=== PATIENT | female | born 1965 | race Native Hawaiian/Other Pacific Islander ===

== ENCOUNTER 2017-12-18 10:52 | Day surgery (SDC) | payer OTHER ==
[2017-12-03 12:19] VITALS: BMI 28.2
[2017-12-18] MEDS ORDERED: Bupivacaine HCl 0.5% PF (10 ml) Inj ONE ×2 (11:19)
[2017-12-18] MEDS ORDERED: Lidocaine 2% Inj (20ml) ONE (11:19)
[2017-12-18] MEDS ORDERED: Propofol 10 mg/ml Inj (20 ML) ONE (12:26)
[2017-12-18] MEDS ORDERED: Midazolam 2 MG/2 ML VIAL ONE (12:26)
--- NOTE | 2017-12-18 13:09 | PCM.SURG1 ---
Surgeon's Initial Post Op Note - Surgeon's Notes Surgeon: Dr. Jitendra Humphries DPM Complaints Coordinator: Dr. Angeli Carmichael DPM PGY-1 Type of Anesthesia: MAC, Local Anesthesia Administered By: Dr. Diamond WALTON Pre-Operative Diagnosis: Left foot plantar fasciitis Operative Findings: See dictation. M: 3-0 nylone. I: 10 cc of 1:1 2% lidocain plain:0.5% marcain plain - preop;. Intra op: 5 cc of 2% lidocain plain, 3 cc of PRP Post-Operative Diagnosis: Same Operation Performed: Percutenous plantar fasciotomy under ultrasound guidance Specimen/Specimens Removed: None Estimated Blood Loss: EBL {In ML}: 1 Blood Products Given: N/A Drains Used: No Drains Post-Op Condition: Good Date of Surgery/Procedure: 12/18/17 Time of Surgery/Procedure: 12:30
[2017-12-18] MEDS ORDERED: Oxycodone/Acetaminophen 5/325 mg Tab PO PRN ×2 (13:11)
[2017-12-18] MEDS ORDERED: Lactated Ringer's 1,000 ML IV SCH (13:15)
[2017-12-18] MEDS: HYDROmorphone 0.5 mg/0.5 ml ISec IVP PRN ×2 (13:55→14:22)
[2017-12-18 15:26] VITALS: BP 110/63; PULSE 64; RESP 18; TEMP 98; O2SAT 100
--- NOTE | 2017-12-19 09:55 | OP ---
PROCEDURE DATE: 12/18/2017 AGE: 52. SEX: Female. PREOPERATIVE DIAGNOSIS: Left foot plantar fasciitis. POSTOPERATIVE DIAGNOSIS: Left foot plantar fasciitis. PROCEDURE: 1. Left foot percutaneous tenotomy of plantar fascia under ultrasound guidance. 2. Platelet-rich plasma injection. SURGEON: Jitendra Humphries DPM. SYSTEM SUPPORT ANALYST: Angeli Carmichael DPM, PGY1. TYPE OF ANESTHESIA: IV sedation with local. ANESTHESIOLOGIST: Dr. Fields. INDICATIONS: The patient is a 52-year-old female with the above diagnosis. The patient has exhausted all conservative treatment at this time and now requires surgical intervention. The patient signed the consent after careful explanation of risks, benefits, complications, and alternatives for surgical procedure. No guarantees were given nor implied. PREPARATION: The patient was brought into the operating room and placed on the operating room table in a prone position. Timeout was performed for the identification of the correct patient and the procedure. After induction of IV sedation, the patient received total of 10 mL of 1:1 mixture of 2% lidocaine plain and 0.5% Marcaine plain in the local block type fashion to the left plantar heel. Once local anesthesia was achieved, the left foot and ankle were then prepped and draped in normal sterile manner. No tourniquet was used during this procedure. PROCEDURE: 1. Left foot percutaneous tenotomy of plantar fascia under ultrasound guidance. Attention was then directed to the left heel. A sterile sleeve was placed over an ultrasound transducer and a diagnostic ultrasound was performed. Attention was then directed to the medial aspect of the calcaneus. Anatomy was identified and the disease-thickened area was seen at the medial plantar fascia band near the calcaneal insertion. Using a #15 blade, a stab incision was created over the medial aspect of the calcaneus. 5 mL of 2% lidocaine plain was injected on the medial calcaneus at this time. The TX two-hand piece was introduced. Once the tip was located in the hypoechoic lesion, the foot pedal was depressed and the area was debrided and the tissue excised. A total of 3 minutes and 8 sec of ultrasonic energy was delivered. 2. Injection of PRP, 30 mL of the patient's own blood was collected. Blood was raised in the centrifuge on the back table. Centrifuge was turned on and the blood was spun utilizing the needle and syringe. Approximately 3 mL of PRP was collected in a sterile manner. Utilizing the 18-gauge needle, the 3 mL of PRP was injected into the left heel. 4-0 nylon was used to suture the skin in a simple suture pattern. The incision was dressed with Betadine-soaked Adaptic, gauze, Naty, and lastly Jose Antonio. POSTOPERATIVE CONDITION: The patient tolerated the anesthesia and the procedure well and was escorted to the recovery room with vital signs stable and neurovascular status intact to the left foot. The patient is to remain partial weightbearing to the left foot with Cam boot and crutches. The patient will be seen and followed by Dr. Humphries as an outpatient in his office. Angeli Carmichael DPM
== END 2017-12-18 16:02 | disposition home or self-care (01) ==
LOC: C.SDS 10:52
PROVIDERS: ATTEND Podiatrist Foot & Ankle Surgery
DX: M72.2 Plantar fascial fibromatosis (principal); Z79.899 Other long term (current) drug therapy; I10 Essential (primary) hypertension; E78.5 Hyperlipidemia, unspecified; M10.9 Gout, unspecified
CPT/HCPCS: 0232T; 28008; J1170; J2250; J2704; J3010